=== PATIENT | female | born 1940 | race Caucasian/White ===

== ENCOUNTER 2019-01-12 09:06 | Observation (INO) | payer OTHER ==
[~2019-01-12] VITALS: Ht 165.1 cm; Wt 83.5 kg
[2019-01-12 10:29] LABS: CALCIUM 8.9 mg/dL (8.5-10.1); CARBON DIOXIDE 20.1 mmol/L (21-32); CHLORIDE SERUM 105 mmol/L (98-107); CREATININE SERUM 0.9 mg/dL (0.6-1.0); GLUCOSE SERUM 128 mg/dL (74-106); SODIUM SERUM 139 mmol/L (136-145)
[2019-01-12 10:34] LABS: ALKALINE PHOSPHATASE 81 U/L (46-116); ALT/SGPT 37 U/L (14-59); AST/SGOT 30 U/L (15-37); BILIRUBIN TOTAL 0.56 mg/dL (0.20-1.00); TOTAL PROTEIN, SERUM 7.2 g/dL (6.4-8.2)
[2019-01-12 10:43] LABS: BASOPHIL % 0.1 % (0-2); PLATELET COUNT 216 x10^3mcL (130-400); RED CELL DISTRIBUTION WIDTH 12.8 % (11.5-14.5)
[2019-01-12] MEDS ORDERED: ZESTRIL5 MG PO (12:11)
[2019-01-12] MEDS ORDERED: TOPROL XL25 MG PO (12:11)
[2019-01-12] MEDS ORDERED: LIPI20 PO (12:12)
[2019-01-12] MEDS ORDERED: LEVOTHYROXINE0.1 M2 PO (12:12)
[2019-01-12] MEDS ORDERED: AMIODARONE HCL200 MG PO (12:12)
[2019-01-12] MEDS ORDERED: OMEPRAZOLE40 M1 PO (12:13)
[2019-01-12] MEDS ORDERED: XARELTO PO (12:14)
[2019-01-12] MEDS ORDERED: ALDACTONE25 MG PO (12:14)
[2019-01-12] MEDS ORDERED: ADV100/50 (12:14)
[2019-01-12] MEDS ORDERED: GABAPENTIN100 M2 PO (12:15)
[2019-01-12] MEDS ORDERED: EPZICOM1 TAB (12:15)
[2019-01-12 13:25] VITALS: BP 173/56
[2019-01-12] MEDS ORDERED: 5-HTP200 MG PO (14:04)
[2019-01-12 15:03] VITALS: BP 173/56
[2019-01-12 18:20] VITALS: BP 161/49
[2019-01-12 21:32] VITALS: BP 145/52
[2019-01-13 06:22] LABS: BASOPHIL % 0.3 % (0-2); PLATELET COUNT 223 x10^3mcL (130-400); RED CELL DISTRIBUTION WIDTH 13.2 % (11.5-14.5)
[2019-01-13 06:28] LABS: CALCIUM 8.9 mg/dL (8.5-10.1); CARBON DIOXIDE 25.7 mmol/L (21-32); CHLORIDE SERUM 105 mmol/L (98-107); GLUCOSE SERUM 107 mg/dL (74-106); POTASSIUM SERUM 4.1 mmol/L (3.5-5.1); SODIUM SERUM 141 mmol/L (136-145)
[2019-01-13 06:34] VITALS: BP 134/50
[2019-01-13 08:46] VITALS: BP 155/56
[2019-01-13 11:56] VITALS: BP 126/85
[2019-01-13 17:04] VITALS: BP 120/60
[2019-01-13 21:09] VITALS: BP 14/51
[2019-01-14 05:30] VITALS: BP 142/53
[2019-01-14 07:12] LABS: CALCIUM 8.5 mg/dL (8.5-10.1); CARBON DIOXIDE 24.5 mmol/L (21-32); CHLORIDE SERUM 105 mmol/L (98-107); CREATININE SERUM 1.1 mg/dL (0.6-1.0); GLUCOSE SERUM 117 mg/dL (74-106); POTASSIUM SERUM 4.3 mmol/L (3.5-5.1); SODIUM SERUM 140 mmol/L (136-145); TRIGLYCERIDES 68 mg/dL (<150)
[2019-01-14 07:14] LABS: CHOLESTEROL 86 mg/dL (<200); CHOLESTEROL/HDL RATIO 3.4; HDL CHOLESTEROL 25 mg/dL (40-60)
[2019-01-14 07:17] LABS: BASOPHIL % 0.2 % (0-2); PLATELET COUNT 224 x10^3mcL (130-400); RED CELL DISTRIBUTION WIDTH 13.2 % (11.5-14.5)
[2019-01-14 08:43] VITALS: Ht 165.1 cm; Wt 83.5 kg
[2019-01-14 09:46] VITALS: BP 133/43
[2019-01-14 12:47] VITALS: BP 135/72
[2019-01-14] MEDS ORDERED: APLICARE ANTIS118 M3 TOP (15:25)
[2019-01-14] MEDS ORDERED: KLOR-CON M1010 MEQ PO (15:25)
[2019-01-14] MEDS ORDERED: BACO TOP (15:25)
[2019-01-14] MEDS ORDERED: LASIX40 MG PO (15:25)
[2019-01-14 15:36] VITALS: BP 135/72
[2019-01-14] MEDS ORDERED: LASIX20 MG PO (15:48)
== END 2019-01-14 16:36 | disposition home health service (06) | DRG 291 ==
LOC: ED 09:06 → DU 12:23
PROVIDERS: Emergency Medicine; Internal Medicine Cardiovascular Disease; ADMIT Internal Medicine Pulmonary Disease
DX: I11.0 Hypertensive heart disease with heart failure (principal); J96.01 Acute respiratory failure with hypoxia; I50.43 Acute on chronic combined systolic (congestive) and diastolic (congestive) heart failure; I48.91 Unspecified atrial fibrillation; J44.9 Chronic obstructive pulmonary disease, unspecified; E03.9 Hypothyroidism, unspecified; Z22.322 Carrier or suspected carrier of Methicillin resistant Staphylococcus aureus; Z87.891 Personal history of nicotine dependence; Z79.01 Long term (current) use of anticoagulants; Z95.0 Presence of cardiac pacemaker; Z96.643 Presence of artificial hip joint, bilateral
CPT/HCPCS: 83880; 94150; G0378; J1940; Q0092